=== PATIENT | male | born 1940 | race Caucasian/White ===

== ENCOUNTER 2019-08-20 22:44 | Inpatient (IN) ==
[2019-08-20] MEDS ORDERED: methylPREDNISolone SOD SUC 125 MG/2 ML VIAL IV STA (23:21)
[2019-08-20] MEDS ORDERED: ORPHENADRINE 60 MG/2 ML VIAL IV STA (23:21)
[2019-08-21] MEDS ORDERED: ACETAMINOPHEN 325 MG TABLET PO PRN (01:47)
[2019-08-21] MEDS ORDERED: ONDANSETRON 4 MG/2 ML VIAL IV PRN (01:47)
[2019-08-21 02:18] LABS: Basophils % 0.2 % (0.0-0.8); Eosinophils % 0.1 % (0.00-10.9); Hematocrit 39.6 VOL% (42.0-52.0); Hemoglobin 13.1 GM/DL (14.0-18.0); Immature Granulocytes % 0.6 %; Immature Granulocytes Absolute 0.11 #; Lymphocytes # 0.5 10*3/uL (1.4-4.0); Lymphocytes % 3.1 % (21.2-54.2); Mean Corpuscular HGB Conc 33.1 GM/DL (32-36); Mean Corpuscular Volume 96.1 FL (87-102); Mean Platelet Volume 10.3 FL (9.6-12.0); Monocytes % 4.4 % (1.7-12.7); Neutrophils % 91.6 % (38.7-73.9); Platelet Count 197 T/CUMM (130-400); Red Blood Count 4.12 MC/CUMM (3.8-5.5); Red Cell Distribution Width 12.3 % (9.3-17.3); White Blood Count 17.3 T/CUMM (4-12)
[2019-08-21 02:39] LABS: Lymphocytes 3 % (20-55); Platelet Estimate Normal; Segmented Neutrophils 93 % (50-85); Total Cells Counted 100
[2019-08-21 02:40] LABS: Ovalocytes Slight; Polychromasia Slight
[2019-08-21] MEDS ORDERED: ALBUTEROL 2.5 MG/3 ML NEB RESP TX PRN (03:00)
[2019-08-21] MEDS: MORPHINE 4 MG/1 ML VIAL IV PRN ×2 (03:43→15:43)
[2019-08-21] MEDS: ALBUTEROL 2.5 MG/3 ML NEB RESP TX PRN ×2 (03:52→14:03)
[2019-08-21 05:46] LABS: Albumin 3.4 G/DL (3.4-5.0); Bilirubin,Total 0.4 MG/DL (0.2-1.0); Calcium 8.6 MG/DL (8.5-10.1); Osmolality,Calculated 290.1 MOS/KG (273-304); Total Protein 6.8 G/DL (6.4-8.3)
[2019-08-21] MEDS: ALBUTEROL/IPRATROPIUM 3 ML NEB RESP TX SCH ×3 (07:19→19:30)
[2019-08-21 08:32] LABS: ABG Base Excess 1.3 MMOL/L (-2.5-2.5); ABG HCO3 25.8 MMOL/L (20-26); ABG Oxygen Saturation 89.3 % (95-100); ABG PCO2 40.4 MM HG (35-48); ABG PH 7.423 (7.35-7.45); ABG PO2 55.8 MM HG (80-95); Allen Test Positive
[2019-08-21] MEDS: ASPIRIN EC 81 MG TABLET PO SCH (09:00)
[2019-08-21] MEDS ORDERED: TRELEGY INH SCH (09:00)
[2019-08-21] MEDS: ATENOLOL 25 MG TABLET PO SCH ×2 (09:00→21:21)
[2019-08-21] MEDS: LISINOPRIL 2.5 MG TABLET PO SCH (09:00)
[2019-08-21] MEDS: methylPREDNISolone SOD SUC 40 MG/1 ML VIAL IV SCH ×2 (09:00→16:52)
[2019-08-21] MEDS: ESCITALOPRAM 10 MG TABLET PO SCH (09:00)
[2019-08-21] MEDS: FAMOTIDINE 20 MG TABLET PO SCH ×2 (09:00→21:21)
[2019-08-21] MEDS: THEOPHYLLINE ER (24 HR) 300 MG CAPSULE PO SCH (09:00)
[2019-08-21] MEDS: FUROSEMIDE 20 MG TABLET PO SCH (09:00)
[2019-08-21] MEDS: SIMVASTATIN 10 MG TABLET PO SCH (21:21)
[2019-08-22] MEDS: methylPREDNISolone SOD SUC 40 MG/1 ML VIAL IV SCH ×3 (00:54→17:30)
[2019-08-22] MEDS: ALBUTEROL/IPRATROPIUM 3 ML NEB RESP TX SCH ×4 (01:06→19:38)
[2019-08-22] MEDS: ESCITALOPRAM 10 MG TABLET PO SCH (08:37)
[2019-08-22] MEDS: ATENOLOL 25 MG TABLET PO SCH ×2 (08:37→20:56)
[2019-08-22] MEDS: FAMOTIDINE 20 MG TABLET PO SCH ×2 (08:37→20:56)
[2019-08-22] MEDS: FUROSEMIDE 20 MG TABLET PO SCH (08:37)
[2019-08-22] MEDS: ASPIRIN EC 81 MG TABLET PO SCH (08:37)
[2019-08-22] MEDS: LISINOPRIL 2.5 MG TABLET PO SCH (08:38)
[2019-08-22] MEDS: THEOPHYLLINE ER (24 HR) 300 MG CAPSULE PO SCH (08:44)
[2019-08-22] MEDS: MORPHINE 4 MG/1 ML VIAL IV PRN (08:44)
[2019-08-22] MEDS: ALBUTEROL 2.5 MG/3 ML NEB RESP TX PRN (17:05)
[2019-08-22] MEDS: SIMVASTATIN 10 MG TABLET PO SCH (20:56)
[2019-08-23] MEDS: ALBUTEROL/IPRATROPIUM 3 ML NEB RESP TX SCH ×4 (00:25→19:44)
[2019-08-23] MEDS: MORPHINE 4 MG/1 ML VIAL IV PRN ×2 (00:32→21:01)
[2019-08-23] MEDS: ALBUTEROL 2.5 MG/3 ML NEB RESP TX PRN ×2 (00:40→06:45)
[2019-08-23] MEDS: methylPREDNISolone SOD SUC 40 MG/1 ML VIAL IV SCH ×3 (01:15→17:34)
[2019-08-23] MEDS: FAMOTIDINE 20 MG TABLET PO SCH ×2 (08:42→21:03)
[2019-08-23] MEDS: ESCITALOPRAM 10 MG TABLET PO SCH (08:42)
[2019-08-23] MEDS: LISINOPRIL 2.5 MG TABLET PO SCH (08:42)
[2019-08-23] MEDS: THEOPHYLLINE ER (24 HR) 300 MG CAPSULE PO SCH (08:42)
[2019-08-23] MEDS: FUROSEMIDE 20 MG TABLET PO SCH (08:42)
[2019-08-23] MEDS: ASPIRIN EC 81 MG TABLET PO SCH (08:42)
[2019-08-23] MEDS: ATENOLOL 25 MG TABLET PO SCH ×2 (08:43→21:02)
[2019-08-23] MEDS: SIMVASTATIN 10 MG TABLET PO SCH (21:02)
[2019-08-24] MEDS: ALBUTEROL/IPRATROPIUM 3 ML NEB RESP TX SCH ×5 (00:28→19:44)
[2019-08-24] MEDS: methylPREDNISolone SOD SUC 40 MG/1 ML VIAL IV SCH ×3 (01:57→17:02)
[2019-08-24] MEDS: ESCITALOPRAM 10 MG TABLET PO SCH (08:13)
[2019-08-24] MEDS: LISINOPRIL 2.5 MG TABLET PO SCH (08:13)
[2019-08-24] MEDS: ATENOLOL 25 MG TABLET PO SCH ×2 (08:14→21:07)
[2019-08-24] MEDS: FUROSEMIDE 20 MG TABLET PO SCH (08:14)
[2019-08-24] MEDS: THEOPHYLLINE ER (24 HR) 300 MG CAPSULE PO SCH (08:14)
[2019-08-24] MEDS: FAMOTIDINE 20 MG TABLET PO SCH ×2 (08:14→21:07)
[2019-08-24] MEDS: ASPIRIN EC 81 MG TABLET PO SCH (08:14)
[2019-08-24] MEDS: SIMVASTATIN 10 MG TABLET PO SCH (21:07)
[2019-08-25] MEDS: ALBUTEROL/IPRATROPIUM 3 ML NEB RESP TX SCH ×4 (00:38→19:54)
[2019-08-25] MEDS: methylPREDNISolone SOD SUC 40 MG/1 ML VIAL IV SCH ×3 (01:10→16:17)
[2019-08-25 06:26] LABS: Hematocrit 34.8 VOL% (42.0-52.0); Hemoglobin 11.5 GM/DL (14.0-18.0); Immature Granulocytes % 0.9 %; Immature Granulocytes Absolute 0.08 #; Lymphocytes # 0.3 10*3/uL (1.4-4.0); Lymphocytes % 3.6 % (21.2-54.2); Mean Corpuscular Volume 96.9 FL (87-102); Mean Platelet Volume 10.4 FL (9.6-12.0); Monocytes % 7.1 % (1.7-12.7); Neutrophils % 88.4 % (38.7-73.9); Platelet Count 157 T/CUMM (130-400); Red Blood Count 3.59 MC/CUMM (3.8-5.5); Red Cell Distribution Width 12.5 % (9.3-17.3)
[2019-08-25 06:34] LABS: Calcium 7.8 MG/DL (8.5-10.1)
[2019-08-25 06:48] LABS: Lymphocytes 9 % (20-55); Platelet Estimate Adequate; Segmented Neutrophils 86 % (50-85); Total Cells Counted 100
[2019-08-25 06:49] LABS: Hypochromasia 1+
[2019-08-25] MEDS: ESCITALOPRAM 10 MG TABLET PO SCH (09:55)
[2019-08-25] MEDS: THEOPHYLLINE ER (24 HR) 300 MG CAPSULE PO SCH (09:55)
[2019-08-25] MEDS: ASPIRIN EC 81 MG TABLET PO SCH (09:55)
[2019-08-25] MEDS: FUROSEMIDE 20 MG TABLET PO SCH (09:55)
[2019-08-25] MEDS: FAMOTIDINE 20 MG TABLET PO SCH ×2 (09:55→20:28)
[2019-08-25] MEDS: ATENOLOL 25 MG TABLET PO SCH ×2 (09:56→20:28)
[2019-08-25] MEDS: LISINOPRIL 2.5 MG TABLET PO SCH (10:01)
[2019-08-25] MEDS: SIMVASTATIN 10 MG TABLET PO SCH (20:28)
[2019-08-26] MEDS: ALBUTEROL/IPRATROPIUM 3 ML NEB RESP TX SCH ×4 (00:43→19:21)
[2019-08-26] MEDS: methylPREDNISolone SOD SUC 40 MG/1 ML VIAL IV SCH ×3 (01:32→16:20)
[2019-08-26] MEDS: ATENOLOL 25 MG TABLET PO SCH ×2 (10:11→20:38)
[2019-08-26] MEDS: ASPIRIN EC 81 MG TABLET PO SCH (10:11)
[2019-08-26] MEDS: FUROSEMIDE 20 MG TABLET PO SCH (10:12)
[2019-08-26] MEDS: THEOPHYLLINE ER (24 HR) 300 MG CAPSULE PO SCH (10:12)
[2019-08-26] MEDS: ESCITALOPRAM 10 MG TABLET PO SCH (10:12)
[2019-08-26] MEDS: LISINOPRIL 2.5 MG TABLET PO SCH (10:12)
[2019-08-26] MEDS: FAMOTIDINE 20 MG TABLET PO SCH ×2 (10:12→20:38)
[2019-08-26] MEDS: SIMVASTATIN 10 MG TABLET PO SCH (20:38)
[2019-08-27] MEDS: ALBUTEROL/IPRATROPIUM 3 ML NEB RESP TX SCH ×4 (00:45→20:44)
[2019-08-27] MEDS: methylPREDNISolone SOD SUC 40 MG/1 ML VIAL IV SCH ×3 (00:59→16:14)
[2019-08-27] MEDS: ALBUTEROL 2.5 MG/3 ML NEB RESP TX PRN (06:05)
[2019-08-27] MEDS: THEOPHYLLINE ER (24 HR) 300 MG CAPSULE PO SCH (09:22)
[2019-08-27] MEDS: ASPIRIN EC 81 MG TABLET PO SCH (09:22)
[2019-08-27] MEDS: FAMOTIDINE 20 MG TABLET PO SCH ×2 (09:22→20:44)
[2019-08-27] MEDS: FUROSEMIDE 20 MG TABLET PO SCH (09:23)
[2019-08-27] MEDS: ATENOLOL 25 MG TABLET PO SCH ×2 (09:23→20:44)
[2019-08-27] MEDS: LISINOPRIL 2.5 MG TABLET PO SCH (09:23)
[2019-08-27] MEDS: ESCITALOPRAM 10 MG TABLET PO SCH (09:23)
[2019-08-27] MEDS: SIMVASTATIN 10 MG TABLET PO SCH (20:44)
[2019-08-28] MEDS: methylPREDNISolone SOD SUC 40 MG/1 ML VIAL IV SCH ×3 (00:43→16:43)
[2019-08-28] MEDS: ALBUTEROL/IPRATROPIUM 3 ML NEB RESP TX SCH ×4 (01:01→20:19)
[2019-08-28] MEDS: THEOPHYLLINE ER (24 HR) 300 MG CAPSULE PO SCH (09:26)
[2019-08-28] MEDS: ESCITALOPRAM 10 MG TABLET PO SCH (09:26)
[2019-08-28] MEDS: FUROSEMIDE 20 MG TABLET PO SCH (09:26)
[2019-08-28] MEDS: LISINOPRIL 2.5 MG TABLET PO SCH (09:26)
[2019-08-28] MEDS: FAMOTIDINE 20 MG TABLET PO SCH ×2 (09:26→20:24)
[2019-08-28] MEDS: ASPIRIN EC 81 MG TABLET PO SCH (09:26)
[2019-08-28] MEDS: ATENOLOL 25 MG TABLET PO SCH ×2 (09:26→20:24)
[2019-08-28] MEDS ORDERED: LIDOCAINE 1% 5 ML VIAL ONE (11:21)
[2019-08-28] MEDS ORDERED: TISSUE ADHESIVE 1 EACH APPLICATOR TOP ONE (11:22)
[2019-08-28] MEDS ORDERED: DEXAMETHASONE 10 MG/1 ML VIAL ONE (11:22)
[2019-08-28] MEDS ORDERED: ceFAZolin 1,000 MG VIAL ONE (11:22)
[2019-08-28] MEDS ORDERED: LACTATED RINGERS 1,000 ML IV SCH (12:00)
[2019-08-28] MEDS ORDERED: PROPOFOL 200 MG/20 ML VIAL IV ONE (12:31)
[2019-08-28] MEDS ORDERED: LIDOCAINE 2% 5 ML VIAL ONE (12:32)
[2019-08-28] MEDS ORDERED: fentaNYL 100 MCG/2 ML VIAL ONE (12:32)
[2019-08-28] MEDS ORDERED: MIDAZOLAM 2 MG/2 ML VIAL ONE (12:32)
[2019-08-28] MEDS ORDERED: ALBUTEROL/IPRATROPIUM 3 ML NEB RESP TX ONE (12:52)
[2019-08-28] MEDS: SIMVASTATIN 10 MG TABLET PO SCH (20:24)
[2019-08-29] MEDS: ALBUTEROL/IPRATROPIUM 3 ML NEB RESP TX SCH ×2 (00:48→07:50)
[2019-08-29] MEDS: methylPREDNISolone SOD SUC 40 MG/1 ML VIAL IV SCH ×2 (01:14→08:55)
[2019-08-29] MEDS: ALBUTEROL 2.5 MG/3 ML NEB RESP TX PRN (05:40)
[2019-08-29 08:36] VITALS: BP 113/63
[2019-08-29] MEDS: THEOPHYLLINE ER (24 HR) 300 MG CAPSULE PO SCH (08:52)
[2019-08-29] MEDS: FAMOTIDINE 20 MG TABLET PO SCH (08:52)
[2019-08-29] MEDS: ATENOLOL 25 MG TABLET PO SCH (08:52)
[2019-08-29] MEDS: ESCITALOPRAM 10 MG TABLET PO SCH (08:52)
[2019-08-29] MEDS: FUROSEMIDE 20 MG TABLET PO SCH (08:52)
[2019-08-29] MEDS: LISINOPRIL 2.5 MG TABLET PO SCH (08:53)
[2019-08-29] MEDS: ASPIRIN EC 81 MG TABLET PO SCH (08:53)
== END 2019-08-29 10:55 | disposition home or self-care (01) | DRG 478 ==
LOC: EDUNIT# → N.ED 22:44 → N.EDINP 22:44 → N.2E 08-21 02:10
PROVIDERS: ADMIT Family Medicine; ATTEND Family Medicine

== ENCOUNTER 2021-01-03 04:04 | Inpatient (IN) ==
[2021-01-03] MEDS ORDERED: ALBUTEROL/IPRATROPIUM 3 ML NEB RESP TX STA (04:35)
[2021-01-03] MEDS ORDERED: methylPREDNISolone SOD SUC 125 MG/2 ML VIAL IV STA (04:35)
[2021-01-03] MEDS ORDERED: methylPREDNISolone SOD SUC 125 MG/2 ML VIAL ONE (04:46)
[2021-01-03] MEDS ORDERED: ALBUTEROL/IPRATROPIUM 3 ML NEB RESP TX ONE (04:46)
[2021-01-03] MEDS ORDERED: SODIUM CHLORIDE 0.9% 1,000 ML IV STA (05:16)
[2021-01-03] MEDS ORDERED: LEVOFLOXACIN INJ 500 MG in PREMIX 1 EACH IV STA (05:23)
[2021-01-03 06:28] LABS: Basophils % 0.2 % (0.0-0.8); Eosinophils % 7.8 % (0.00-10.9); Hematocrit 40.4 VOL% (42.0-52.0); Hemoglobin 12.7 GM/DL (14.0-18.0); Immature Granulocytes % 1.3 %; Immature Granulocytes Absolute 0.16 #; Lymphocytes # 1.9 10*3/uL (1.4-4.0); Lymphocytes % 14.9 % (21.2-54.2); Mean Corpuscular HGB Conc 31.4 GM/DL (32-36); Mean Corpuscular Volume 100.5 FL (87-102); Mean Platelet Volume 9.6 FL (9.6-12.0); Monocytes % 4.7 % (1.7-12.7); Neutrophils % 71.1 % (38.7-73.9); Platelet Count 209 T/CUMM (130-400); Red Blood Count 4.02 MC/CUMM (3.8-5.5); Red Cell Distribution Width 12.4 % (9.3-17.3); White Blood Count 12.4 T/CUMM (4-12)
[2021-01-03 06:42] LABS: Partial Thromboplastin Time 26.4 SECS (23.9-33.8)
[2021-01-03 06:44] LABS: ABG PH 7.236 (7.35-7.45); Allen Test Positive
[2021-01-03 06:45] LABS: ABG Base Excess 25.8 MMOL/L (-2.5-2.5); ABG HCO3 23.4 MMOL/L (20-26); ABG PCO2 66.8 MM HG (35-48); ABG PO2 68.6 MM HG (80-95); ABG TCO2 66.8 MMOL/L (23-27)
[2021-01-03 06:46] LABS: ABG Oxygen Saturation 14.9 % (95-100)
[2021-01-03] MEDS ORDERED: VANCOMYCIN INJ 1,000 MG in SODIUM CHLORIDE 0.9% 250 ML IV STA (06:59)
[2021-01-03 07:17] LABS: Alanine Aminotransferase 24 U/L (16-61); Albumin 3.6 G/DL (3.4-5.0); Alkaline Phosphatase 81 U/L (45-117); Aspartate Amino Transferase 22 U/L (0-37); Bilirubin,Total < 0.39 MG/DL (0.2-1.0); Blood Urea Nitrogen 15 MG/DL (7-18); Calcium 8.2 MG/DL (8.5-10.1); Estimated Glom Filtration Rate 77 ML/MIN
[2021-01-03 07:18] LABS: Carbon Dioxide 31 MMOL/L (21-32); Glucose 189 MG/DL (74-106); Osmolality,Calculated 286.3 MOS/KG (273-304); Potassium 4.2 MMOL/L (3.5-5.1); Sodium 141 MMOL/L (136-145)
[2021-01-03] MEDS ORDERED: ETOMIDATE 20 MG/10 ML VIAL IV STA (07:18)
[2021-01-03] MEDS ORDERED: ROCURONIUM 100 MG/10 ML VIAL IV STA (07:18)
[2021-01-03] MEDS ORDERED: NOREPINEPHRINE 4 MG/4 ML VIAL IV ONE ×2 (07:34→18:56)
[2021-01-03] MEDS ORDERED: SODIUM CHLORIDE 0.9% 500 ML IV STA (07:34)
[2021-01-03] MEDS: NOREPINEPHRINE 8 MG in SODIUM CHLORIDE 0.9% 242 ML IV PRN ×3 (07:40→19:00)
[2021-01-03] MEDS ORDERED: AZITHROMYCIN INJ 500 MG in SODIUM CHLORIDE 0.9% 250 ML IV ONE (08:53)
[2021-01-03 09:21] VITALS: BP 116/74
[2021-01-03 09:29] LABS: ABG Base Excess -5.4 MMOL/L (-2.5-2.5); ABG Oxygen Saturation 97.6 % (95-100); ABG PCO2 63.2 MM HG (35-48); ABG TCO2 22.4 MMOL/L (23-27)
[2021-01-03 09:31] LABS: ABG PH 7.185 (7.35-7.45)
[2021-01-03] MEDS: ENOXAPARIN 40 MG/0.4 ML SYRINGE SUBCUT SCH (11:41)
[2021-01-03] MEDS: MEROPENEM 500 MG in SODIUM CHLORIDE 0.9% 100 ML IV SCH ×3 (11:57→21:12)
[2021-01-03] MEDS ORDERED: LACTATED RINGERS 500 ML IV ONE ×2 (13:08→20:57)
[2021-01-03] MEDS: ALBUTEROL/IPRATROPIUM 3 ML NEB RESP TX SCH ×2 (13:15→18:25)
[2021-01-03] MEDS ORDERED: LACTATED RINGERS 1,000 ML IV ONE (13:37)
[2021-01-03] MEDS: methylPREDNISolone SOD SUC 40 MG/1 ML VIAL IV SCH ×2 (15:30→21:14)
[2021-01-03] MEDS ORDERED: CALCIUM CHLORIDE 1,000 MG/10 ML SYRINGE IV ONE ×3 (16:41→16:54)
[2021-01-03] MEDS ORDERED: SODIUM BICARBONATE 50 MEQ/50 ML VIAL IV ONE ×5 (16:44→17:39)
[2021-01-03] MEDS ORDERED: DIGOXIN 0.5 MG/2 ML AMP ONE ×2 (16:48→18:07)
[2021-01-03] MEDS ORDERED: DIGOXIN 0.5 MG/2 ML AMP IV ONE ×3 (16:52→19:09)
[2021-01-03] MEDS ORDERED: CLOPIDOGREL 75 MG TABLET PO SCH (17:00)
[2021-01-03 17:19] LABS: ABG Base Excess -6.4 MMOL/L (-2.5-2.5); ABG HCO3 19.2 MMOL/L (20-26); ABG Oxygen Saturation 97.7 % (95-100); ABG PCO2 57.4 MM HG (35-48); ABG TCO2 20.9 MMOL/L (23-27)
[2021-01-03 17:23] LABS: ABG PH 7.197 (7.35-7.45)
[2021-01-03] MEDS ORDERED: PHENYLEPHRINE DRIP 40 MG/250 ML PREMIX IV PRN (18:27)
[2021-01-03] MEDS ORDERED: AMIODARONE INJ 150 MG in DEXTROSE 5% 100 ML IV ONE (18:33)
[2021-01-03] MEDS ORDERED: AMIODARONE 150 MG/3 ML VIAL ONE (18:36)
[2021-01-03] MEDS ORDERED: AMIODARONE INJ 450 MG in DEXTROSE 5% 241 ML IV SCH (19:00)
[2021-01-03] MEDS ORDERED: CARBOXYMETHYLCELLULOSE 1% OPH SOLN BOTH EYES PRN (19:21)
[2021-01-03 19:59] LABS: ABG Base Excess -4.9 MMOL/L (-2.5-2.5); ABG HCO3 20.3 MMOL/L (20-26); ABG Oxygen Saturation 97.7 % (95-100); ABG PCO2 49.6 MM HG (35-48); ABG PH 7.262 (7.35-7.45); ABG TCO2 20.6 MMOL/L (23-27)
[2021-01-03] MEDS ORDERED: methylPREDNISolone SOD SUC 40 MG/1 ML VIAL IV SCH (21:00)
[2021-01-03] MEDS: FAMOTIDINE 8 MG/ML 50 ML/BOTTLE PO SCH (21:12)
[2021-01-03] MEDS: SODIUM BICARB INJ 100 MEQ in SODIUM CHLORIDE 0.45% 1,000 ML IV SCH (22:00)
[2021-01-03] MEDS: NOREPINEPHRINE 16 MG in SODIUM CHLORIDE 0.9% 234 ML IV PRN (22:37)
[2021-01-04 00:17] LABS: ABG Base Excess -4.7 MMOL/L (-2.5-2.5); ABG HCO3 22.5 MMOL/L (20-26); ABG Oxygen Saturation 97.2 % (95-100); ABG PCO2 52.1 MM HG (35-48); ABG PH 7.254 (7.35-7.45); ABG PO2 110.1 MM HG (80-95); ABG TCO2 24.1 MMOL/L (23-27)
[2021-01-04] MEDS: ALBUTEROL/IPRATROPIUM 3 ML NEB RESP TX SCH ×4 (00:20→18:20)
[2021-01-04 00:40] LABS: Albumin 2.3 G/DL (3.4-5.0); Bilirubin,Total 0.4 MG/DL (0.2-1.0); Calcium 7.8 MG/DL (8.5-10.1); Potassium 5.2 MMOL/L (3.5-5.1); Total Protein 4.7 G/DL (6.4-8.2)
[2021-01-04] MEDS: PHENYLEPHRINE INJ 160 MG in SODIUM CHLORIDE 0.9% 234 ML IV PRN ×3 (00:42→19:09)
[2021-01-04] MEDS ORDERED: MAGNESIUM SULF RIDER 2 GM in PREMIX 1 EACH IV PRN (00:50)
[2021-01-04] MEDS ORDERED: MAGNESIUM SULF RIDER 4 GM in PREMIX 1 EACH IV PRN (00:50)
[2021-01-04 00:51] LABS: Basophils % 0.1 % (0.0-0.8); Hematocrit 31.9 VOL% (42.0-52.0); Immature Granulocytes % 0.8 %; Immature Granulocytes Absolute 0.18 #; Lymphocytes # 0.8 10*3/uL (1.4-4.0); Lymphocytes % 3.4 % (21.2-54.2); Mean Corpuscular Volume 102.6 FL (87-102); Mean Platelet Volume 10.6 FL (9.6-12.0); Monocytes % 8.1 % (1.7-12.7); Neutrophils % 87.6 % (38.7-73.9); Red Blood Count 3.11 MC/CUMM (3.8-5.5); Red Cell Distribution Width 12.9 % (9.3-17.3); White Blood Count 22.1 T/CUMM (4-12)
[2021-01-04] MEDS: INSULIN LISPRO 100 UNIT/ML SUBCUT SCH ×4 (00:53→18:04)
[2021-01-04 00:56] LABS: Hemoglobin 9.9 GM/DL (14.0-18.0)
[2021-01-04 00:57] LABS: Platelet Count 159 T/CUMM (130-400)
[2021-01-04 01:18] LABS: Lymphocytes 3 % (20-55); Platelet Estimate Normal; Segmented Neutrophils 92 % (50-85); Total Cells Counted 100
[2021-01-04 01:19] LABS: Hypochromasia Slight; Macrocytosis Slight
[2021-01-04] MEDS: MEROPENEM 500 MG in SODIUM CHLORIDE 0.9% 100 ML IV SCH ×4 (02:10→21:30)
[2021-01-04] MEDS: AMIODARONE INJ 450 MG in DEXTROSE 5% 241 ML IV SCH ×2 (02:10→18:24)
[2021-01-04] MEDS: SODIUM BICARB INJ 100 MEQ in SODIUM CHLORIDE 0.45% 1,000 ML IV SCH ×4 (03:45→21:26)
[2021-01-04 04:02] LABS: ABG Base Excess -5.8 MMOL/L (-2.5-2.5); ABG HCO3 19.7 MMOL/L (20-26); ABG Oxygen Saturation 97.8 % (95-100); ABG PH 7.219 (7.35-7.45); ABG TCO2 20.9 MMOL/L (23-27)
[2021-01-04 04:17] LABS: Basophils % 0.1 % (0.0-0.8); Hematocrit 31.5 VOL% (42.0-52.0); Hemoglobin 9.8 GM/DL (14.0-18.0); Immature Granulocytes % 0.9 %; Immature Granulocytes Absolute 0.21 #; Lymphocytes # 0.8 10*3/uL (1.4-4.0); Lymphocytes % 3.5 % (21.2-54.2); Mean Corpuscular HGB Conc 31.1 GM/DL (32-36); Mean Corpuscular Volume 102.6 FL (87-102); Mean Platelet Volume 10.8 FL (9.6-12.0); Monocytes % 7.1 % (1.7-12.7); Neutrophils % 88.4 % (38.7-73.9); Platelet Count 157 T/CUMM (130-400); Red Blood Count 3.07 MC/CUMM (3.8-5.5); Red Cell Distribution Width 12.9 % (9.3-17.3); White Blood Count 22.6 T/CUMM (4-12)
[2021-01-04 04:35] LABS: Calcium 7.6 MG/DL (8.5-10.1); Osmolality,Calculated 290.1 MOS/KG (273-304); Potassium 5.4 MMOL/L (3.5-5.1)
[2021-01-04 04:38] LABS: Band Neutrophils 4 % (0-10); Hypochromasia Slight; Lymphocytes 4 % (20-55); Macrocytosis Slight; Platelet Estimate Normal; Segmented Neutrophils 90 % (50-85); Total Cells Counted 100; Troponin I 1.15 NG/ML (0.00-0.045)
[2021-01-04 04:46] LABS: Ferritin 5534.8 ng/ml (26-388)
[2021-01-04] MEDS: methylPREDNISolone SOD SUC 40 MG/1 ML VIAL IV SCH ×3 (05:11→21:26)
[2021-01-04] MEDS: NOREPINEPHRINE 16 MG in SODIUM CHLORIDE 0.9% 234 ML IV PRN ×3 (05:15→19:10)
[2021-01-04] MEDS ORDERED: LACTATED RINGERS 1,000 ML IV ONE (09:44)
[2021-01-04] MEDS: ENOXAPARIN 40 MG/0.4 ML SYRINGE SUBCUT SCH (10:21)
[2021-01-04] MEDS: THEOPHYLLINE ER (24 HR) 300 MG CAPSULE PO SCH (10:24)
[2021-01-04] MEDS: ESCITALOPRAM 10 MG TABLET PO SCH (10:24)
[2021-01-04] MEDS: CHOLECALCIFEROL 1,000 UNIT TABLET PO SCH (10:29)
[2021-01-04] MEDS ORDERED: LACTATED RINGERS 2,000 ML IV ONE (10:30)
[2021-01-04] MEDS: AZITHROMYCIN INJ 250 MG in SODIUM CHLORIDE 0.9% 150 ML IV SCH (10:53)
[2021-01-04 11:08] LABS: ABG Base Excess -6.1 MMOL/L (-2.5-2.5); ABG HCO3 19.4 MMOL/L (20-26); ABG PCO2 59.7 MM HG (35-48); ABG TCO2 21.6 MMOL/L (23-27)
[2021-01-04 11:10] LABS: ABG PH 7.184 (7.35-7.45)
[2021-01-04 13:00] LABS: ABG Base Excess -5.8 MMOL/L (-2.5-2.5); ABG HCO3 19.6 MMOL/L (20-26); ABG Oxygen Saturation 99.2 % (95-100); ABG PCO2 51.6 MM HG (35-48); ABG PH 7.232 (7.35-7.45); ABG TCO2 20.7 MMOL/L (23-27)
[2021-01-04 14:03] LABS: Albumin 1.8 G/DL (3.4-5.0); Bilirubin,Total 0.4 MG/DL (0.2-1.0); CKMB % 3.5 %; Calcium 7.3 MG/DL (8.5-10.1); Osmolality,Calculated 288.1 MOS/KG (273-304); Potassium 5.1 MMOL/L (3.5-5.1); Total Protein 3.6 G/DL (6.4-8.2)
[2021-01-04 14:06] LABS: Troponin I 1.03 NG/ML (0.00-0.045)
[2021-01-04] MEDS: FAMOTIDINE 8 MG/ML 50 ML/BOTTLE PO SCH (21:27)
[2021-01-05] MEDS: ALBUTEROL/IPRATROPIUM 3 ML NEB RESP TX SCH ×2 (00:46→07:00)
[2021-01-05] MEDS: NOREPINEPHRINE 16 MG in SODIUM CHLORIDE 0.9% 234 ML IV PRN ×2 (01:45→07:50)
[2021-01-05] MEDS: MEROPENEM 500 MG in SODIUM CHLORIDE 0.9% 100 ML IV SCH ×2 (02:45→09:29)
[2021-01-05] MEDS: PHENYLEPHRINE INJ 160 MG in SODIUM CHLORIDE 0.9% 234 ML IV PRN (02:45)
[2021-01-05] MEDS: SODIUM BICARB INJ 100 MEQ in SODIUM CHLORIDE 0.45% 1,000 ML IV SCH ×2 (02:45→09:28)
[2021-01-05 03:55] LABS: ABG Base Excess -9.3 MMOL/L (-2.5-2.5); ABG HCO3 16.9 MMOL/L (20-26); ABG Oxygen Saturation 99.4 % (95-100); ABG PCO2 40.4 MM HG (35-48); ABG PH 7.244 (7.35-7.45); ABG TCO2 16.6 MMOL/L (23-27)
[2021-01-05 03:58] LABS: Basophils % 0.1 % (0.0-0.8); Hematocrit 25.3 VOL% (42.0-52.0); Immature Granulocytes % 1.2 %; Immature Granulocytes Absolute 0.25 #; Lymphocytes # 0.6 10*3/uL (1.4-4.0); Mean Corpuscular HGB Conc 30.4 GM/DL (32-36); Mean Corpuscular Volume 103.7 FL (87-102); Mean Platelet Volume 11.2 FL (9.6-12.0); Monocytes % 6.9 % (1.7-12.7); NRBC # 0.22 10*3/uL; Neutrophils % 88.8 % (38.7-73.9); Red Cell Distribution Width 13.2 % (9.3-17.3); White Blood Count 20.5 T/CUMM (4-12)
[2021-01-05 04:00] LABS: Hemoglobin 7.7 GM/DL (14.0-18.0); Platelet Count 98 T/CUMM (130-400); Red Blood Count 2.44 MC/CUMM (3.8-5.5)
[2021-01-05 04:14] LABS: Osmolality,Calculated 288.1 MOS/KG (273-304); Potassium 5.5 MMOL/L (3.5-5.1)
[2021-01-05 04:22] LABS: Band Neutrophils 2 % (0-10); Lymphocytes 5 % (20-55); Segmented Neutrophils 87 % (50-85); Total Cells Counted 100
[2021-01-05 04:31] LABS: Albumin 1.7 G/DL (3.4-5.0); Bilirubin,Total 1.1 MG/DL (0.2-1.0); Calcium 6.9 MG/DL (8.5-10.1); Ferritin 15790.5 ng/ml (26-388); Osmolality,Calculated 288.1 MOS/KG (273-304); Potassium 5.4 MMOL/L (3.5-5.1); Total Protein 3.6 G/DL (6.4-8.2)
[2021-01-05 04:51] LABS: Hypochromasia 1+; Ovalocytes 2+; Platelet Estimate Adequate
[2021-01-05] MEDS ORDERED: DEXTROSE 50% 25 GM/50 ML VIAL IV ONE (04:52)
[2021-01-05] MEDS ORDERED: DEXTROSE 50% 25 GM/50 ML VIAL IV PRN (05:01)
[2021-01-05] MEDS: INSULIN LISPRO 100 UNIT/ML SUBCUT SCH ×2 (06:36)
[2021-01-05] MEDS: methylPREDNISolone SOD SUC 40 MG/1 ML VIAL IV SCH (07:12)
[2021-01-05] MEDS: AMIODARONE INJ 450 MG in DEXTROSE 5% 241 ML IV SCH (09:28)
[2021-01-05] MEDS: ESCITALOPRAM 10 MG TABLET PO SCH (09:28)
[2021-01-05] MEDS: AZITHROMYCIN INJ 250 MG in SODIUM CHLORIDE 0.9% 150 ML IV SCH (09:29)
[2021-01-05] MEDS: CHOLECALCIFEROL 1,000 UNIT TABLET PO SCH (09:29)
[2021-01-05] MEDS: THEOPHYLLINE ER (24 HR) 300 MG CAPSULE PO SCH (09:29)
[2021-01-05] MEDS: ENOXAPARIN 40 MG/0.4 ML SYRINGE SUBCUT SCH (09:29)
== END 2021-01-05 08:20 | disposition expired | DRG 871 ==
LOC: N.ED 04:04 → N.EDINP 07:34 → SUATTDRO 07:34 → N.ICU 09:28
PROVIDERS: ADMIT Internal Medicine; ATTEND Internal Medicine